=== PATIENT | male | born 1995 ===

== ENCOUNTER 2021-04-03 20:26 | Emergency (ER) | payer OTHER ==
[~2021-04-03] VITALS: Ht 180.3 cm; Wt 74.8 kg
== END 2021-04-03 22:34 | disposition home or self-care (01) ==
LOC: ER 20:26
DX: S50.12XA Contusion of left forearm, initial encounter (principal); F17.210 Nicotine dependence, cigarettes, uncomplicated; W17.81XA Fall down embankment (hill), initial encounter; Y93.01 Activity, walking, marching and hiking
CPT/HCPCS: 73090; 99283-25; A9270